=== PATIENT | male | born 1995 | race Caucasian/White ===

== ENCOUNTER 2016-10-20 00:17 | Inpatient (IN) | payer MEDICAID, OTHER, SELFPAY ==
[~2016-10-20] VITALS: Ht 180.3 cm; Wt 60.6 kg
[2016-10-20] MEDS ORDERED: ZIPRASIDONE 20 MG INJ IM ONE (03:50)
[2016-10-20] MEDS ORDERED: LORAZEPAM 2 MG/ML VIAL ONE (04:11)
[2016-10-20] MEDS ORDERED: LORAZEPAM 2 MG/ML VIAL IM PRN (05:25)
[2016-10-20] MEDS ORDERED: MAG HYDROX 30 ML UDC PO PRN (05:25)
[2016-10-20] MEDS ORDERED: ALU/MAG/SIM 30 ML UDC PO PRN (05:25)
[2016-10-20] MEDS ORDERED: HALOPERIDOL 5 MG/ML VIAL IM PRN (05:25)
[2016-10-20] MEDS ORDERED: HALOPERIDOL 5 MG TAB PO PRN (05:25)
[2016-10-20] MEDS ORDERED: LORAZEPAM 2 MG TAB PO PRN (05:25)
[2016-10-20] MEDS ORDERED: DIPHENHYDRAMINE 50 MG/ML VIAL IM PRN (05:25)
[2016-10-20] MEDS ORDERED: ACETAMINOPHEN 325 MG TAB PO PRN (05:25)
[2016-10-20] MEDS ORDERED: TRAZODONE 50 MG TAB PO PRN (05:25)
[2016-10-20] MEDS ORDERED: DIPHENHYDRAMINE 50 MG CAP PO PRN (05:25)
[2016-10-20 06:31] VITALS: BP_SYST 95; RESP 16; TEMP 97.6
[2016-10-20] MEDS: MULTIVITS/MINERALS (THERAGRAN M) TAB PO SCH (11:27)
[2016-10-20] MEDS: NICOTINE 21 MG/24 HR TRANSDERM SCH (11:27)
[2016-10-20 19:12] VITALS: BP_SYST 136; RESP 18; TEMP 98.3
[2016-10-20 21:29] VITALS: Ht 180.3 cm; Wt 60.6 kg
[2016-10-21 07:00] VITALS: BP_SYST 133; RESP 16; TEMP 97.8
[2016-10-21] MEDS: MULTIVITS/MINERALS (THERAGRAN M) TAB PO SCH (08:37)
[2016-10-21] MEDS: NICOTINE 21 MG/24 HR TRANSDERM SCH (08:39)
[2016-10-21 19:04] VITALS: BP_SYST 137; RESP 18; TEMP 97.6
[2016-10-21] MEDS ORDERED: risperiDONE 2 MG TAB PO SCH (21:00)
[2016-10-22] MEDS: MULTIVITS/MINERALS (THERAGRAN M) TAB PO SCH (08:34)
[2016-10-22] MEDS: NICOTINE 21 MG/24 HR TRANSDERM SCH ×2 (09:00→19:37)
[2016-10-22 19:03] VITALS: BP_SYST 127; RESP 18; TEMP 97.5
[2016-10-22] MEDS ORDERED: risperiDONE 2 MG TAB PO SCH (21:00)
[2016-10-23] MEDS: MULTIVITS/MINERALS (THERAGRAN M) TAB PO SCH (09:16)
[2016-10-23] MEDS: NICOTINE 21 MG/24 HR TRANSDERM SCH (09:16)
[2016-10-23 10:49] VITALS: BP_SYST 141; RESP 18; TEMP 97.5
[2016-10-23 11:23] VITALS: BP_SYST 141; RESP 18; TEMP 97.5
== END 2016-10-23 12:35 | disposition home or self-care (01) | DRG 897 ==
LOC: ER 00:17 → EMR 05:11 → PSY 06:05
PROVIDERS: ADMIT Psychiatry & Neurology Psychiatry; ATTEND Psychiatry & Neurology Psychiatry
CPT/HCPCS: 70450; 96372